=== PATIENT | female | born 1955 | race Two or more races ===

== ENCOUNTER 2017-03-11 09:37 | Emergency (ER) | payer SELFPAY ==
[2017-03-11] MEDS ORDERED: KETOROLAC 60 MG/2 ML INJ. IM (10:00)
== END 2017-03-11 10:33 | disposition home or self-care (01) ==
LOC: ER 09:37
DX: J06.9 Acute upper respiratory infection, unspecified (principal)
CPT/HCPCS: 99283

== ENCOUNTER → 2017-03-25 | Outpatient (CLI) | payer SELFPAY | END | disposition home or self-care (01) | LOC: KCIC 10:30 | DX: R06.2 Wheezing (principal); R06.02 Shortness of breath | CPT/HCPCS: 71046 ==

== ENCOUNTER → 2017-05-21 | Outpatient (CLI) | payer SELFPAY | END | disposition home or self-care (01) | LOC: KCIC MRI 13:01 | DX: H91.91 Unspecified hearing loss, right ear (principal) | CPT/HCPCS: 70551 ==

== ENCOUNTER → 2017-09-14 | Outpatient (CLI) | payer SELFPAY | END | disposition home or self-care (01) | LOC: KCIC MAMMO 11:04 | DX: Z12.31 Encounter for screening mammogram for malignant neoplasm of breast (principal) | CPT/HCPCS: 77067 ==

== ENCOUNTER → 2018-04-22 | Outpatient (CLI) | payer OTHER ==
[2017-03-11 10:01] VITALS: BP 160/70
[~2018-04-22] MED LIST: AMOX875T PO; BENZ100C PO; PRED20TA PO; TRAM50TA PO
--- NOTE | 2018-04-22 11:35 | KCIC ---
Exam performed: Right thumb 3 views. HISTORY: Right thumb pain. DATE OF SERVICE: 04/22/2018. COMPARISON: None available FINDINGS: Normal alignment is preserved. There is no acute fracture or dislocation. Early degenerative changes seen about the first carpometacarpal joint No soft tissue swelling or foreign body seen. IMPRESSION: Early degenerative changes involving the first carpometacarpal joint, otherwise unremarkable exam. Electronically signed by: Patricia Ibrahim MD (04/22/2018 11:30 AM) [facility]
== END | disposition home or self-care (01) ==
LOC: KCIC 10:47
PROVIDERS: ATTEND Plastic Surgery Surgery of the Hand
DX: M19.041 Primary osteoarthritis, right hand (principal)
CPT/HCPCS: 73140

== ENCOUNTER 2018-09-28 09:19 | Emergency (ER) | payer SELFPAY ==
[~2018-09-28] VITALS: Ht 167.6 cm; Wt 103.4 kg
[2018-09-28 10:31] LABS: BILIRUBIN,URINE NEGATIVE (NEG); CLARITY,URINE CLEAR; COLOR,URINE YELLOW; NITRITE,URINE NEGATIVE (NEG); PH,URINE 5.5; PROTEIN,URINE NEGATIVE (NEG-TRACE); UROBILINOGEN,URINE 0.2 mg/dL (0.2 mg/dL)
[2018-09-28 10:40] LABS: BACTERIA,URINE FEW /HPF (0-FEW); RBC,URINE 0 /HPF (0-2); SQUAMOUS EPITHELIAL CELL,UR FEW /LPF
[2018-09-28 10:51] LABS: CALCIUM 9.1 mg/dL (8.5-10.1); CREATININE 1.2 mg/dL (0.6-1.0); GFR 45.7; POTASSIUM 3.8 mmol/L (3.5-5.1)
[2018-09-28 10:59] LABS: ALBUMIN 3.5 g/dL (3.4-5.0); ALBUMIN/GLOBULIN RATIO 0.7 (1.0-1.7); TOTAL BILIRUBIN 0.5 mg/dL (0.2-1.0); TOTAL PROTEIN 8.3 g/dL (6.4-8.2)
[2018-09-28] MEDS ORDERED: IV NORMAL SALINE 1000ML BAG 1,000 ML IV ONE (11:00)
[2018-09-28 11:36] LABS: BASO # 0.1 x10^3/uL (0.0-0.2); BASO % 1 % (0-3); EOS # 0.1 x10^3/uL (0.0-0.7); EOS % 1 % (0-3); HEMATOCRIT 34.5 % (36.0-47.0); HEMOGLOBIN 11.5 g/dL (12.0-15.5); LYMPH # 1.3 x10^3/uL (1.0-4.8); LYMPH % 11 % (24-48); MEAN CORPUSCULAR HEMOGLOBIN 28 pg (25-35); MEAN CORPUSCULAR HGB CONC 33 g/dL (31-37); MEAN CORPUSCULAR VOLUME 84 fL (79-100); MONO # 0.6 x10^3/uL (0.0-1.1); MONO % 5 % (0-9); NEUT % 82 % (31-73); PLATELET COUNT 214 x10^3/uL (140-400); RED BLOOD COUNT 4.12 x10^6/uL (3.50-5.40); RED CELL DISTRIBUTION WIDTH 14.2 % (11.5-14.5); WHITE BLOOD COUNT 12.2 x10^3/uL (4.0-11.0)
[2018-09-28] MEDS ORDERED: CONTRAST GIVEN. MC PRN (11:45)
[2018-09-28] MEDS ORDERED: IOHEXOL 300 MG/ML 100ML VIAL. IV ONE (11:45)
--- NOTE | 2018-09-28 11:49 | NUR ---
Pt ambulated to the restroom.
--- NOTE | 2018-09-28 12:17 | EKG ---
[facility] [address] [place] [address] Test Date: 2018-09-28 Test Time: 10:19:26 Pat Name: EMILY CROWELL Department: Room: Gender: F [employer]: : 1955 Requested By: BARBER MONTERO Order Number: [id number] Reading MD: Measurements Intervals [place] Rate: 68 P: 35 [place]: 176 QRS: -26 QRSD: 94 T: 5 QT: 380 QTc: 409 Interpretive Statements SINUS RHYTHM LEFTWARD AXIS OTHERWISE NORMAL ECG RI6.01 No previous ECG available for comparison
--- NOTE | 2018-09-28 12:19 | RAD ---
Examination: CT of the abdomen pelvis with IV contrast HISTORY: History of abdominal pain COMPARISON: None available TECHNIQUE: Axial CT images of the abdomen pelvis were performed with IV contrast. Coronal and sagittal reformats are performed Exposure: One or more of the following individualized dose reduction techniques were utilized for this examination: 1. Automated exposure control 2. Adjustment of the mA and/or kV according to patient size 3. Use of iterative reconstruction technique FINDINGS: Minimal bibasilar lung atelectasis. No evidence of free air identified in the abdomen. The visualized liver, adrenals grossly appears unremarkable. Calcified granulomas identified in the spleen. The gallbladder is mildly distended. The stomach is mildly distended. The head of the pancreas evaluation is limited due to motion artifact. There is minimal change in density within the head of the pancreas which could be due to motion artifact however underlying pathology not excluded. The gallbladder is mildly distended. The small bowel is nondilated. Feces and gas noted in the colon. The appendix is normal. Few sigmoid colon diverticulosis identified. There is mild inflammatory fat stranding identified in the sigmoid colon region likely diverticulitis.. Urinary bladder is mildly distended. The bilateral kidneys enhance symmetrically. Mild degenerative changes lumbar spine. IMPRESSION: 1. Findings consistent with acute diverticulitis of the sigmoid colon. 2. Minimal differential density identified in the head of the pancreas probably artifactual, however underlying pathology not completely excluded. Recommend nonemergent MRI abdomen. Electronically signed by: Dwayne Anderson MD (09/28/2018 12:16 PM) [facility]
[2018-09-28 13:00] VITALS: BP 149/59
[2018-09-28] MEDS ORDERED: CIPR500T PO (13:07)
[2018-09-28] MEDS ORDERED: METR-34 PO (13:07)
--- NOTE | 2018-09-28 13:07 | PHYS DOC ---
Past Medical History Past Medical History: Anemia, Arthritis, Asthma, Diabetes-Type II, GERD, High Cholesterol, Hypertension, Renal Disease Additional Past Medical Histor: sleep apnea; peripheral neuropathy Past Surgical History: Lumbar Laminectomy, Tonsillectomy Additional Past Surgical Histo: bunionectomy; R carpal tunnel and trigger thumb Alcohol Use: None Drug Use: None Adult General Chief Complaint Chief Complaint: ABDOMINAL PAIN HPI HPI Patient is a 63 year old female who presents the ER for evaluation. Patient reports progressive nausea and right lower quadrant/suprapubic abdominal pain for the past 3-4 weeks. Decreased PO intake. + Weight loss. Denies any vomiting, diarrhea. Denies any fever. Denies any GI bleed symptoms. History of diabetes. Has not had any abdominal surgeries. Denies any previous episodes. Pain is constant, waxing/waning, 4-5/10, cramping. Review of Systems Review of Systems Constitutional: Denies fever or chills [] Eyes: Denies change in visual acuity, redness, or eye pain [] HENT: Denies nasal congestion or sore throat [] Respiratory: Denies cough or shortness of breath [] Cardiovascular: No chest pain, no palpitations, no LE edema GI: + abdominal pain, + nausea, no vomiting, no bloody stools or no diarrhea [] : Denies dysuria or hematuria [] Musculoskeletal: Denies back pain or joint pain [] Integument: Denies rash or skin lesions [] Neurologic: Denies headache, focal weakness or sensory changes [] Endocrine: Denies polyuria or polydipsia [] All other systems were reviewed and found to be within normal limits, except as documented in this note. Current Medications Current Medications Current Medications Medications (Trade) Dose Ordered Sig/Dung Start Time Stop Time Status Last Admin Dose Admin Ciprofloxacin (Cipro) 500 mg 1X ONCE 09/28/18 13:15 09/28/18 13:16 DC 09/28/18 13:14 500 MG Info (CONTRAST GIVEN -- Rx MONITORING) 1 each PRN DAILY PRN 09/28/18 11:45 09/28/18 13:43 DC Iohexol (Omnipaque 300 Mg/ml) 60 ml 1X ONCE 09/28/18 11:45 09/28/18 11:46 DC 09/28/18 12:01 60 ML Metronidazole (Flagyl) 500 mg 1X ONCE 09/28/18 13:15 09/28/18 13:16 DC 09/28/18 13:14 500 MG Sodium Chloride 1,000 ml @ 1,000 mls/hr 1X ONCE 09/28/18 11:00 09/28/18 11:59 DC 09/28/18 10:53 1,000 MLS/HR Allergies Allergies Allergies Coded Allergies Type Severity Reaction Last Updated Verified pineapple Allergy Severe swelling throat 09/28/18 Yes niacin Allergy Intermediate hives 09/28/18 Yes ezetimibe Allergy Mild HEADACHES 09/28/18 Yes simvastatin Allergy Mild HEADACHES 09/28/18 Yes Physical Exam Physical Exam Constitutional: Obese, [id number]. HENT: Normocephalic, atraumatic, Eyes: PERRLA, EOMI, Neck: No JVD, no stridor. [] Cardiovascular:Heart rate regular rhythm, no murmur [] Lungs & Thorax: Bilateral breath sounds clear to auscultation [] Abdomen: Bowel sounds normal, mild to moderate right periumbilical, no guarding, no rebound tenderness Skin: Warm, dry, no erythema, no rash. [] Back: No tenderness, no CVA tenderness. [] Extremities: No tenderness, no cyanosis, no clubbing, ROM intact, no edema. [] Neurologic: Alert and oriented X 3, no focal deficits Current Patient Data Vital Signs Vital Signs Date Time Temp Pulse Resp B/P (MAP) Pulse Ox O2 Delivery O2 Flow Rate FiO2 09/28/18 13:00 70 16 149/59 (89) 95 Room Air 09/28/18 09:55 99.3 99.3 Lab Values Laboratory Tests Test 09/28/18 10:15 09/28/18 10:25 Urine Collection Type Unknown Urine Color Yellow Urine Clarity Clear Urine pH 5.5 Urine Specific [place] 1.020 Urine Protein Negative mg/dL (NEG-TRACE) Urine Glucose (UA) 250 mg/dL (NEG) Urine Ketones (Stick) Negative mg/dL (NEG) Urine Blood Negative (NEG) Urine Nitrite Negative (NEG) Urine Bilirubin Negative (NEG) Urine Urobilinogen Dipstick 0.2 mg/dL (0.2 mg/dL) Urine Leukocyte Esterase Negative (NEG) Urine RBC 0 /HPF (0-2) Urine WBC 1-4 /HPF (0-4) Urine Squamous Epithelial Cells Few /LPF Urine Bacteria Few /HPF (0-FEW) White Blood Count 12.2 x10^3/uL (4.0-11.0) H Red Blood Count 4.12 x10^6/uL (3.50-5.40) Hemoglobin 11.5 g/dL (12.0-15.5) L Hematocrit 34.5 % (36.0-47.0) L Mean Corpuscular Volume 84 fL (79-100) Mean Corpuscular Hemoglobin 28 pg (25-35) Mean Corpuscular Hemoglobin Concent 33 g/dL (31-37) Red Cell Distribution Width 14.2 % (11.5-14.5) Platelet Count 214 x10^3/uL (140-400) Neutrophils (%) (Auto) 82 % (31-73) H Lymphocytes (%) (Auto) 11 % (24-48) L Monocytes (%) (Auto) 5 % (0-9) Eosinophils (%) (Auto) 1 % (0-3) Basophils (%) (Auto) 1 % (0-3) Neutrophils # (Auto) 10.0 x10^3/uL (1.8-7.7) H Lymphocytes # (Auto) 1.3 x10^3/uL (1.0-4.8) Monocytes # (Auto) 0.6 x10^3/uL (0.0-1.1) Eosinophils # (Auto) 0.1 x10^3/uL (0.0-0.7) Basophils # (Auto) 0.1 x10^3/uL (0.0-0.2) Sodium Level 136 mmol/L (136-145) Potassium Level 3.8 mmol/L (3.5-5.1) Chloride Level 99 mmol/L (98-107) Carbon Dioxide Level 31 mmol/L (21-32) Anion Gap 6 (6-14) Blood Urea Nitrogen 20 mg/dL (7-20) Creatinine 1.2 mg/dL (0.6-1.0) H Estimated GFR (Cockcroft-Gault) 45.7 BUN/Creatinine Ratio 17 (6-20) Glucose Level 219 mg/dL (70-99) H Calcium Level 9.1 mg/dL (8.5-10.1) Total Bilirubin 0.5 mg/dL (0.2-1.0) Aspartate Amino Transferase (AST) 19 U/L (15-37) Alanine Aminotransferase (ALT) 21 U/L (14-59) Alkaline Phosphatase 70 U/L (46-116) Total Protein 8.3 g/dL (6.4-8.2) H Albumin 3.5 g/dL (3.4-5.0) Albumin/Globulin Ratio 0.7 (1.0-1.7) L Lipase 138 U/L (73-393) Laboratory Tests 09/28/18 10:25 Laboratory Tests 09/28/18 10:25 EKG EKG [] Radiology/Procedures Radiology/Procedures CT ABD/Pelvis IMPRESSION: 1. Findings consistent with acute diverticulitis of the sigmoid colon. 2. Minimal differential density identified in the head of the pancreas probably artifactual, however underlying pathology not completely excluded. Recommend nonemergent MRI abdomen. Electronically signed by: Dwayne Anderson MD (09/28/2018 12:16 PM) [facility] [] Course & Med Decision Making Course & Med Decision Making Pertinent Labs and Imaging studies reviewed. (See chart for details) []Pt declined nausea/pain medication while in the ED. Labs/CT as above consistent with diverticulitis.Pt appropriate for outpt management. First dose of ABX given in ED. Discussed Rx. ER return precautions given. Pt verbalized understanding. All questions answered. Dragon Disclaimer Dragon Disclaimer This electronic medical record was generated, in whole or in part, using a voice recognition dictation system. Departure Departure Impression: Primary Impression: Diverticulitis Additional Impression: Abdominal pain Disposition: 01 HOME, SELF-CARE Condition: STABLE Referrals: JEMMA LICEA MD (PCP) Patient Instructions: Diverticulitis Additional Instructions: Thank you for coming to [facility]. Please read the attached handouts. Please follow-up with your primary care physician. Return to the ER if your symptoms worsen or you have any other concerns. Take the entire course of antibiotics. Scripts Metronidazole (METRONIDAZOLE) 500 Mg Tablet 1 TAB PO TID for 7 Days, #21 TAB Prov: KEITHLY,BARBER T DO 09/28/18 Ciprofloxacin Hcl (CIPROFLOXACIN HCL) 500 Mg Tablet 1 TAB PO BID, #14 TAB Prov: KEITHLY,BARBER T DO 09/28/18 Problem Qualifiers KEITHLY,BARBER T DO Sep 28, 2018 13:07
[2018-09-28] MEDS ORDERED: CIPROFLOXACIN HCL 250 MG TABLET. PO ONE (13:15)
[2018-09-28] MEDS ORDERED: metroNIDAZOLE 500 MG TABLET PO ONE (13:15)
== END 2018-09-28 13:18 | disposition home or self-care (01) ==
LOC: ER 09:19
DX: M19.90 Unspecified osteoarthritis, unspecified site (principal); K57.32 Diverticulitis of large intestine without perforation or abscess without bleeding; R11.0 Nausea; E66.9 Obesity, unspecified; Z68.36 Body mass index [BMI] 36.0-36.9, adult; J45.909 Unspecified asthma, uncomplicated; K21.9 Gastro-esophageal reflux disease without esophagitis; E78.00 Pure hypercholesterolemia, unspecified; I10 Essential (primary) hypertension; E11.40 Type 2 diabetes mellitus with diabetic neuropathy, unspecified; Z90.89 Acquired absence of other organs; Z88.8 Allergy status to other drugs, medicaments and biological substances; Z91.018 Allergy to other foods
CPT/HCPCS: 36415; 74177; 80053; 81001; 83690; 85025; 87040; 93005; 99285; J7030; Q9967

== ENCOUNTER → 2018-10-12 | Outpatient (CLI) | payer OTHER ==
[2018-09-28 13:00] VITALS: BP 149/59
[~2018-10-12] MED LIST changes: +CIPR500T PO; +CONTRAST GIVEN. MC PRN; +IOHEXOL 240 MG/ML 50ML VIAL. PO ONE; +IOHEXOL 300 MG/ML 100ML VIAL. IV ONE; +METR-34 PO
--- NOTE | 2018-10-12 11:12 | KCIC ---
Examination: CT of the abdomen pelvis with IV and oral contrast HISTORY: History follow-up diverticulitis COMPARISON: 09/28/2018 TECHNIQUE: Axial CT images of the abdomen pelvis were performed with oral and IV contrast. Coronal and sagittal reformats are performed. Exposure: One or more of the following individualized dose reduction techniques were utilized for this examination: 1. Automated exposure control 2. Adjustment of the mA and/or kV according to patient size 3. Use of iterative reconstruction technique FINDINGS: Minimal bibasilar lung atelectasis. No evidence of free air identified in the abdomen. Mild decreased attenuation noted in the liver likely hepatic steatosis. Calcified granulomas identified in the spleen. The stomach is mildly distended. The visualized pancreas grossly appears unremarkable. The gallbladder is mildly distended. The small bowel is nondilated. The appendix is normal. Feces and gas noted in the colon. Multiple sigmoid colon diverticulosis identified. There is interval mild decrease in diameter fat stranding about the sigmoid colon likely in both diverticulitis. Urinary bladder is mildly distended. Small hypodensity identified in the left ovary probably a collapsed follicle or cyst. The bilateral kidneys enhance symmetrically. Small cystic structure identified in the right kidney measuring 1.6 cm likely a cyst. Mild degenerative changes lumbar spine. IMPRESSION: 1. Improved sigmoid colon diverticulitis. Electronically signed by: Dwayne Anderson MD (10/12/2018 11:09 AM) [id number]
== END | disposition home or self-care (01) ==
LOC: KCIC CT 09:03
PROVIDERS: ATTEND Family Medicine
DX: K57.30 Diverticulosis of large intestine without perforation or abscess without bleeding (principal); K31.89 Other diseases of stomach and duodenum; K82.8 Other specified diseases of gallbladder; N32.89 Other specified disorders of bladder; J98.11 Atelectasis; J84.10 Pulmonary fibrosis, unspecified; M47.816 Spondylosis without myelopathy or radiculopathy, lumbar region
CPT/HCPCS: 74177; Q9966; Q9967

== ENCOUNTER → 2018-11-16 | Outpatient (CLI) | payer OTHER ==
[~2018-11-16] MED LIST changes: -CONTRAST GIVEN. MC PRN; -IOHEXOL 240 MG/ML 50ML VIAL. PO ONE; -IOHEXOL 300 MG/ML 100ML VIAL. IV ONE
--- NOTE | 2018-11-16 16:51 | RAD ---
MRCP WO CONTRAST: 11/16/2018 8:15 AM INDICATION: 63 years old Female. Abdominal pain for 2 months. History of pancreatic cyst.. COMPARISON: CT abdomen/pelvis 10/12/2018. TECHNIQUE: Multiplanar multisequence MR imaging of the abdomen was performed without the intravenous administration of gadolinium. MRCP protocol was utilized. Maximum intensity projection images of the biliary tree were obtained. FINDINGS: LUNG BASES: Unremarkable. ABDOMEN: LIVER: Normal morphology. No significant difference of hepatic signal intensity between in and out of phase images. There is no focal hepatic parenchymal abnormality. BILE DUCTS: CBD 5 mm. There is no intra or extrahepatic biliary ductal dilatation. There is no filling defect, stricture, obstructing lesion or biliary wall thickening identified. GALLBLADDER: Unremarkable. PANCREAS: Normal caliber pancreatic duct. 5 mm cyst is identified within the pancreas without definite indication of the main pancreatic duct. SPLEEN: Within normal limits. ADRENAL GLANDS: Unremarkable. KIDNEYS: Superior pole left renal cyst measures 13 mm. No hydronephrosis. BOWEL: Normal caliber. PERITONEUM: No ascites or free air. No fluid collection. VASCULATURE: No abdominal aortic aneurysm. Major abdominal veins are patent. RETROPERITONEUM: Within normal limits. LYMPH NODES: Within normal limits. ABDOMINAL WALL: Unremarkable. BONES: No suspicious osseous abnormality. Minimal levoconvex curvature of the lumbar spine. IMPRESSION: No evidence of biliary dilatation, stricture, filling defect, wall thickening or obstructing mass lesion. 5 mm cyst in the body of the pancreas without definite communication with the main pancreatic duct. Consideration may be given for a simple epithelial cyst versus side branch intraductal papillary mucinous neoplasm. Recommend MRCP in 2 years. Simple renal cyst in the superior pole the right kidney measuring 13 mm. Electronically signed by: Lisseth Tanner MD (11/16/2018 4:48 PM) [facility]
== END | disposition home or self-care (01) ==
LOC: MRI 07:32
PROVIDERS: ATTEND Internal Medicine Gastroenterology
DX: K86.2 Cyst of pancreas (principal); N28.1 Cyst of kidney, acquired
CPT/HCPCS: 74181

== ENCOUNTER 2018-12-20 09:44 | Emergency (ER) | payer OTHER ==
[~2018-12-20] VITALS: Ht 167.6 cm; Wt 98.9 kg
[2018-12-20 10:37] LABS: BILIRUBIN,URINE NEGATIVE (NEG); CLARITY,URINE CLEAR; COLOR,URINE YELLOW; NITRITE,URINE NEGATIVE (NEG); PROTEIN,URINE NEGATIVE (NEG-TRACE); UROBILINOGEN,URINE 0.2 mg/dL (0.2 mg/dL)
[2018-12-20 10:43] LABS: SQUAMOUS EPITHELIAL CELL,UR FEW /LPF
[2018-12-20 10:44] LABS: BASO # 0.1 x10^3/uL (0.0-0.2); BASO % 1 % (0-3); EOS # 0.2 x10^3/uL (0.0-0.7); EOS % 1 % (0-3); HEMATOCRIT 34.2 % (36.0-47.0); HEMOGLOBIN 11.5 g/dL (12.0-15.5); LYMPH # 1.4 x10^3/uL (1.0-4.8); LYMPH % 12 % (24-48); MEAN CORPUSCULAR HEMOGLOBIN 28 pg (25-35); MEAN CORPUSCULAR HGB CONC 34 g/dL (31-37); MEAN CORPUSCULAR VOLUME 84 fL (79-100); MONO # 0.5 x10^3/uL (0.0-1.1); MONO % 4 % (0-9); NEUT # 9.6 x10^3/uL (1.8-7.7); NEUT % 82 % (31-73); PLATELET COUNT 213 x10^3/uL (140-400); RED BLOOD COUNT 4.07 x10^6/uL (3.50-5.40); RED CELL DISTRIBUTION WIDTH 14.5 % (11.5-14.5); WHITE BLOOD COUNT 11.8 x10^3/uL (4.0-11.0)
[2018-12-20 10:44] LABS: BACTERIA,URINE FEW /HPF (0-FEW)
[2018-12-20 11:00] LABS: CALCIUM 9.2 mg/dL (8.5-10.1); CREATININE 1.1 mg/dL (0.6-1.0); GFR 50.5; POTASSIUM 4.2 mmol/L (3.5-5.1)
[2018-12-20 11:06] LABS: ALBUMIN 3.9 g/dL (3.4-5.0); ALBUMIN/GLOBULIN RATIO 1.1 (1.0-1.7); TOTAL BILIRUBIN 0.6 mg/dL (0.2-1.0); TOTAL PROTEIN 7.6 g/dL (6.4-8.2)
[2018-12-20] MEDS ORDERED: KETOROLAC 30 MG/ML VIAL. IV ONE (11:15)
--- NOTE | 2018-12-20 11:19 | RAD ---
PELVIS ULTRASOUND History: Abnormal vaginal bleeding. Postmenopausal. Comparison: None. Technique: Grayscale and color Doppler imaging of the pelvis was performed using transabdominal technique. Findings: The uterus measures 7.1 x 7.2 x 5.2 cm in length. Thickened endometrium measures up to 2.0 cm. Hyperechoic structure within the endometrial canal measures 2.9 x 2.2 x 2.3 cm with increased vascularity. Small nonspecific endometrial fluid noted. Right ovary measures 2.2 x 1.8 x 1.5 cm and is unremarkable. Left ovary measures 3.1 x 1.5 x 2.2 cm and is unremarkable. No adnexal masses are seen. IMPRESSION: 1. Thickened endometrium with hyperechoic lesion with increased vascular flow and adjacent fluid, may represent endometrial polyp although endometrial carcinoma is not excluded. Recommend further clinical evaluation and endometrial biopsy. Electronically signed by: Maninder Anderson DO (12/20/2018 11:16 AM) [id number]
--- NOTE | 2018-12-20 11:34 | PHYS DOC ---
Past Medical History Past Medical History: Anemia, Arthritis, Asthma, Diabetes-Type II, GERD, High Cholesterol, Hypertension, Renal Disease Additional Past Medical Histor: sleep apnea; peripheral neuropathy Past Surgical History: Lumbar Laminectomy, Tonsillectomy Additional Past Surgical Histo: bunionectomy; R carpal tunnel and trigger thumb Alcohol Use: None Drug Use: None Adult General Chief Complaint Chief Complaint: ABDOMINAL PAIN [facility] HPI Patient is a 63 year old post menopausal female who presents with complaining of abdominal pain and abnormal vaginal bleeding. Patient had diagnosis of diverticulitis in September 28 with constant generalized abdominal pain and was seen in this emergency room. Patient complaining of constant suprapubic pain for the same time and intermittent episodes of vaginal bleeding since end of September with dark blood that happened off and on. Patient states the pain as a sharp pain and radiated to her umbilical area and rated her pain 8/10. Patient didn't take any pain medication and did not follow up with her primary care physician or OB /[employer]AR [employer]TIF[employer]. Patient states she lost about 20 pounds bleeding and complaining of decrease of appetite and generalized weakness. Reading, vomiting, chest pain, shortness of breath. Patient complaining of urinary frequency. Review of Systems Review of Systems Constitutional: Denies fever or chills [] Eyes: Denies change in visual acuity, redness, or eye pain [] HENT: Denies nasal congestion or sore throat [] Respiratory: Denies cough or shortness of breath [] Cardiovascular: No additional information not addressed in HPI [] GI: Reports abdominal pain, denies nausea, vomiting, bloody stools or diarrhea [] : Denies dysuria or hematuria [] Musculoskeletal: Denies back pain or joint pain [] Integument: Denies rash or skin lesions [] Neurologic: Denies headache, focal weakness or sensory changes [] Endocrine: Denies polyuria or polydipsia [] All other systems were reviewed and found to be within normal limits, except as documented in this note. Current Medications Current Medications Current Medications Medications (Trade) Dose Ordered Sig/Dung Start Time Stop Time Status Last Admin Dose Admin Ketorolac Tromethamine (Toradol 30mg Vial) 30 mg 1X ONCE 12/20/18 11:15 12/20/18 11:16 DC 12/20/18 11:11 30 MG Allergies Allergies Allergies Coded Allergies Type Severity Reaction Last Updated Verified pineapple Allergy Severe swelling throat 09/28/18 Yes niacin Allergy Intermediate hives 09/28/18 Yes ezetimibe Allergy Mild HEADACHES 09/28/18 Yes simvastatin Allergy Mild HEADACHES 09/28/18 Yes Physical Exam Physical Exam Constitutional: Well developed, well nourished, mild distress, non-toxic appearance, no pallor. [] HENT: Normocephalic, atraumatic. Eyes: PERRLA, EOMI, conjunctiva normal, no discharge. [] Neck: Normal range of motion, no tenderness, supple, no stridor. [] Cardiovascular:Heart rate regular rhythm, no murmur [] Lungs & Thorax: Bilateral breath sounds clear to auscultation [] Abdomen: Bowel sounds normal, soft, no tenderness, no masses, no pulsatile masses. [] Skin: Warm, dry, no erythema, no rash. [] Back: No tenderness, no CVA tenderness. [] Extremities: No tenderness, no cyanosis, no clubbing, ROM intact, no edema. [] Neurologic: Alert and oriented X 3, no focal deficits noted. [] Psychologic: Affect normal, judgement normal, mood normal. [] Current Patient Data Vital Signs Vital Signs Date Time Temp Pulse Resp B/P (MAP) Pulse Ox O2 Delivery O2 Flow Rate FiO2 12/20/18 11:00 68 22 161/68 (99) 96 Room Air 12/20/18 09:45 98.7 98.7 Lab Values Laboratory Tests Test 12/20/18 09:55 12/20/18 10:35 Urine Collection Type Void Urine Color Yellow Urine Clarity Clear Urine pH 5.0 Urine Specific [place] 1.020 Urine Protein Negative mg/dL (NEG-TRACE) Urine Glucose (UA) Negative mg/dL (NEG) Urine Ketones (Stick) Negative mg/dL (NEG) Urine Blood Negative (NEG) Urine Nitrite Negative (NEG) Urine Bilirubin Negative (NEG) Urine Urobilinogen Dipstick 0.2 mg/dL (0.2 mg/dL) Urine Leukocyte Esterase Negative (NEG) Urine RBC 1-2 /HPF (0-2) Urine WBC 5-10 /HPF (0-4) Urine Squamous Epithelial Cells Few /LPF Urine Bacteria Few /HPF (0-FEW) Urine Mucus Marked /LPF White Blood Count 11.8 x10^3/uL (4.0-11.0) H Red Blood Count 4.07 x10^6/uL (3.50-5.40) Hemoglobin 11.5 g/dL (12.0-15.5) L Hematocrit 34.2 % (36.0-47.0) L Mean Corpuscular Volume 84 fL (79-100) Mean Corpuscular Hemoglobin 28 pg (25-35) Mean Corpuscular Hemoglobin Concent 34 g/dL (31-37) Red Cell Distribution Width 14.5 % (11.5-14.5) Platelet Count 213 x10^3/uL (140-400) Neutrophils (%) (Auto) 82 % (31-73) H Lymphocytes (%) (Auto) 12 % (24-48) L Monocytes (%) (Auto) 4 % (0-9) Eosinophils (%) (Auto) 1 % (0-3) Basophils (%) (Auto) 1 % (0-3) Neutrophils # (Auto) 9.6 x10^3/uL (1.8-7.7) H Lymphocytes # (Auto) 1.4 x10^3/uL (1.0-4.8) Monocytes # (Auto) 0.5 x10^3/uL (0.0-1.1) Eosinophils # (Auto) 0.2 x10^3/uL (0.0-0.7) Basophils # (Auto) 0.1 x10^3/uL (0.0-0.2) Sodium Level 143 mmol/L (136-145) Potassium Level 4.2 mmol/L (3.5-5.1) Chloride Level 105 mmol/L (98-107) Carbon Dioxide Level 28 mmol/L (21-32) Anion Gap 10 (6-14) Blood Urea Nitrogen 23 mg/dL (7-20) H Creatinine 1.1 mg/dL (0.6-1.0) H Estimated GFR (Cockcroft-Gault) 50.5 BUN/Creatinine Ratio 21 (6-20) H Glucose Level 144 mg/dL (70-99) H Calcium Level 9.2 mg/dL (8.5-10.1) Total Bilirubin 0.6 mg/dL (0.2-1.0) Aspartate Amino Transferase (AST) 14 U/L (15-37) L Alanine Aminotransferase (ALT) 16 U/L (14-59) Alkaline Phosphatase 65 U/L (46-116) Total Protein 7.6 g/dL (6.4-8.2) Albumin 3.9 g/dL (3.4-5.0) Albumin/Globulin Ratio 1.1 (1.0-1.7) Lipase 111 U/L (73-393) Laboratory Tests 12/20/18 10:35 Laboratory Tests 12/20/18 10:35 EKG EKG [] Radiology/Procedures Radiology/Procedures [][facility] [address] [place] [address] IMAGING REPORT Signed PATIENT: EMILY CROWELL ACCOUNT: [id number] : 1955 LOCATION: ER AGE: 63 SEX: F EXAM STATUS: REG ER ORD. PHYSICIAN: KENA STALLINGS MD REASON: abnormal vaginal bleeding after menopause PROCEDURE: PELVIS ULTRASOUND PELVIS ULTRASOUND History: Abnormal vaginal bleeding. Postmenopausal. Comparison: None. Technique: Grayscale and color Doppler imaging of the pelvis was performed using transabdominal technique. Findings: The uterus measures 7.1 x 7.2 x 5.2 cm in length. Thickened endometrium measures up to 2.0 cm. Hyperechoic structure within the endometrial canal measures 2.9 x 2.2 x 2.3 cm with increased vascularity. Small nonspecific endometrial fluid noted. Right ovary measures 2.2 x 1.8 x 1.5 cm and is unremarkable. Left ovary measures 3.1 x 1.5 x 2.2 cm and is unremarkable. No adnexal masses are seen. IMPRESSION: 1. Thickened endometrium with hyperechoic lesion with increased vascular flow and adjacent fluid, may represent endometrial polyp although endometrial carcinoma is not excluded. Recommend further clinical evaluation and endometrial biopsy. Electronically signed by: Maninder Anderson DO (12/20/2018 11:16 AM) [facility] DICTATED and SIGNED BY: MANINDER ANDERSON DO DATE: 12/20/18 1116 Course & Med Decision Making Course & Med Decision Making Pertinent Labs and Imaging studies reviewed. (See chart for details) Evaluation of patient in ER showed 63-year-old female patient with complaining of postmenopausal vaginal bleeding and abdominal pain for more than 2 months. Patient had unremarkable physical exam and labs except for a stable anemia with hemoglobin of 11.5. The Ultrasound showed thickening of endometrium with possible polyp or malignancy. On-call GAMING TABLE OPERATOR Dr Seth was consulted at 1150 and recommended follow-up as outpatient with his office for possible endometrial biopsy. I've spoken with the patient and/or caregivers. I've explained the patient's condition, diagnosis and treatment plan based on information available to me at this time. I've answered the patient's and/or caregivers questions and addressed any concerns. The patient and/or caregivers have a good understanding the patient's diagnosis, condition and treatment plan as can be expected at this point. Vital signs have been stabilized. The patient's condition is stable for discharge from the emergency department. The patient will pursue further outpatient evaluation with her primary care provider or other designated consulting physician as outlined in the discharge instructions. Patient and/or caregivers are agreeable to this plan of care and follow-up instructions have been explained in detail. The patient and/or caregivers have received these instructions in written format and expressed understanding of these discharge instructions. The patient and her caregivers are aware that if any significant change in condition or worsening of symptoms should prompt him to immediately return to this of the closest emergency department. If an emergent department is not readily available I would encourage him to call 911. Harris Disclaimer Dragon Disclaimer This electronic medical record was generated, in whole or in part, using a voice recognition dictation system. Departure Departure Impression: Primary Impression: Postmenopausal vaginal bleeding Additional Impressions: Chronic abdominal pain Anemia Urinary tract infection Disposition: HOME, SELF-CARE (at 1159) Condition: IMPROVED Referrals: JEMMA LICEA MD (PCP) MADAY SETH MD Patient Instructions: Abdominal Pain, Abnormal Uterine Bleeding, Anemia, FAQs, Postmenopausal Bleeding, Urinary Tract Infection Additional Instructions: Follow up with on-call GAMING TABLE OPERATOR in 2 or 3 days Follow-up with your primary care physician in 3-5 days Return to ER if not getting better Take [id number] iron pills 3 times a day Scripts Ciprofloxacin Hcl (CIPRO) 250 Mg Tablet 1 TAB PO BID for infection, #14 TAB Prov: KENA STALLINGS MD 12/20/18 Tramadol Hcl (ULTRAM) 50 Mg Tablet 50 MG PO Q6HRS PRN for PAIN, #14 TAB 0 Refills Prov: KENA STALLINGS MD 12/20/18 Problem Qualifiers Additional Impressions: Anemia Anemia type: unspecified type Qualified Codes: D64.9 - Anemia, unspecified Urinary tract infection Urinary tract infection type: site unspecified Hematuria presence: without hematuria Qualified Codes: N39.0 - Urinary tract infection, site not specified KENA STALLINGS MD Dec 20, 2018 11:34
[2018-12-20] MEDS ORDERED: TRAM-48 PO (12:01)
[2018-12-20] MEDS ORDERED: CIPR250T30 PO (12:12)
[2018-12-20] MEDS ORDERED: fentaNYL PF VIAL 100 MCG/2 ML VIAL IVP ONE (12:30)
[2018-12-20 12:45] VITALS: BP 151/67
[2018-12-24] MEDS ORDERED: POTA20TA82 PO (14:42)
[2018-12-24] MEDS ORDERED: LACT1CAP29 PO (14:42)
[2018-12-24] MEDS ORDERED: OLME1TAB21 PO (14:42)
[2018-12-24] MEDS ORDERED: FURO20TA3 PO (14:42)
[2018-12-24] MEDS ORDERED: INSU100V6 SQ (14:42)
[2018-12-24] MEDS ORDERED: EZET10TA20 PO (14:42)
[2018-12-24] MEDS ORDERED: SITA100T PO (14:42)
[2018-12-24] MEDS ORDERED: HYDR-2867 PO (14:42)
[2018-12-24] MEDS ORDERED: INSU100I13 SQ (14:42)
[2018-12-24] MEDS ORDERED: VENTOLIN HFA18 GM INH (14:42)
[2018-12-24] MEDS ORDERED: CARV25TA2 PO (14:42)
[2018-12-24] MEDS ORDERED: CRESTOR20 MG PO (14:42)
[2018-12-24] MEDS ORDERED: BUDE90AE IH (14:42)
[2018-12-24] MEDS ORDERED: ASPI-630 PO (14:42)
[2018-12-24] MEDS ORDERED: CHOL200059 PO (14:42)
== END 2018-12-20 13:05 | disposition home or self-care (01) ==
LOC: ER 09:44
DX: N95.0 Postmenopausal bleeding (principal); G89.29 Other chronic pain; R10.84 Generalized abdominal pain; R53.1 Weakness; D64.9 Anemia, unspecified; N39.0 Urinary tract infection, site not specified; M19.90 Unspecified osteoarthritis, unspecified site; J45.909 Unspecified asthma, uncomplicated; E11.9 Type 2 diabetes mellitus without complications; K21.9 Gastro-esophageal reflux disease without esophagitis; E78.00 Pure hypercholesterolemia, unspecified; I10 Essential (primary) hypertension; E11.40 Type 2 diabetes mellitus with diabetic neuropathy, unspecified; Z90.89 Acquired absence of other organs; Z88.8 Allergy status to other drugs, medicaments and biological substances; Z91.018 Allergy to other foods
CPT/HCPCS: 36415; 76856; 80053; 81001; 83690; 85025; 87086; 96374; 99285; J1885

== ENCOUNTER 2018-12-27 11:13 | Day surgery (SDC) | payer OTHER ==
[~2018-12-27 11:13] MED LIST changes: +ASPI-630 PO; +BUDE90AE IH; +CARV25TA2 PO; +CHOL200059 PO; +CIPR250T30 PO; +CRESTOR20 MG PO; +EZET10TA20 PO; +FURO20TA3 PO; +HYDR-2867 PO; +HYDROmorphone 2 MG/ML VIAL IV PRN; +INSU100I13 SQ; +INSU100V6 SQ; +IV RINGERS,LACTATED 1000ML 1,000 ML IV SCH; +LACT1CAP29 PO; +LIDOCAINE 1% PF 2 ML VIAL. ID PRN; +MORPHINE SULFATE 2 MG/ML VIAL. IV PRN; +OLME1TAB21 PO; +ONDANSETRON PF 4 MG/2 ML VIAL. IV PRN; +POTA20TA82 PO; +PROCHLORPERAZINE 10 MG/2 ML VIAL. IV PRN; +SITA100T PO; +TRAM-48 PO; +VENTOLIN HFA18 GM INH; +fentaNYL PF VIAL 100 MCG/2 ML VIAL IV PRN
[2018-12-27] MEDS ORDERED: INSULIN LISPRO 100 UNIT/ML 3ML VIAL for OP,RR ONLY. SQ PRN (11:15)
[2018-12-27] MEDS ORDERED: FAMOTIDINE 20 MG/2 ML VIAL ONE (11:56)
[2018-12-27] MEDS ORDERED: LIDOCAINE 2% PF 5 ML VIAL. ONE (11:56)
[2018-12-27] MEDS ORDERED: ONDANSETRON PF 4 MG/2 ML VIAL. ONE (11:56)
[2018-12-27] MEDS ORDERED: PROPOFOL 20 ML IV ONE (11:56)
[2018-12-27] MEDS ORDERED: fentaNYL PF VIAL 100 MCG/2 ML VIAL ONE ×2 (11:57→14:21)
[2018-12-27] MEDS ORDERED: GLYCOPYRROLATE 1 MG/5 ML VIAL. ONE (13:29)
[2018-12-27] MEDS ORDERED: DEXAMETHASONE SOD PHOS 4 MG/ML VIAL ONE (13:37)
[2018-12-27] MEDS ORDERED: SEVOFLURANE 31 TO 60 MINUTES. IH ONE (14:03)
[2018-12-27] MEDS ORDERED: NAPR-514 PO (14:46)
[2018-12-27] MEDS ORDERED: HYDR-3164 PO (14:46)
[2018-12-27] MEDS ORDERED: HYDROcodone/APAP 5/325MG 1 TAB TABLET ONE (14:51)
--- NOTE | 2018-12-27 14:52 | PDOC ---
BRIEF OPERATIVE NOTE Pre-Op Diagnosis PMB Post-Op Diagnosis Same polyp Procedure Performed Hystrxcopic D and C with polypectomy Surgeon Rolo Anesthesia Type: General Blood Loss 5cc Specimens Obtained EMB MADAY STEVENSON MD Dec 27, 2018 14:52
[2018-12-27] MEDS ORDERED: HYDROcodone/APAP 5/325MG 1 TAB TABLET PO ONE (15:00)
[2018-12-27 15:10] VITALS: BP 173/65
--- NOTE | 2018-12-30 19:07 | PATHOLOGY ---
[facility] Accession Number: [id number] . 01 Material submitted: . endometrium - ENDOMETRIAL CURETTINGS . 01 Clinical history: . PMB . 02 Diagnosis: Endometrium, curettage: - Well-differentiated endometrial adenocarcinoma, FIGO architectural grade I, nuclear grade I. . (Please see comment) . (SKM:funmi; 12/30/2018) MBR 12/30/2018 1824 Local . 02 Comment: The findings in this case were discussed with Dr. Adrian Seth on 12/30/18. . This case has also been reviewed by Dr. Savana Syed who agrees with the diagnosis. . (SKM:funmi; 12/30/2018) . 02 Electronically signed: . Harjinder Hughes MD, Pathologist NPI- [id number] . 01 Gross description: . Received in formalin labeled "Ball, Yesy, endometrial curettings" is soft, mucoid, and hemorrhagic otoole-brown tissue measuring 2.6 x 2.3 x 0.4 cm which is entirely submitted in A1. (SDY; 12/28/2018) SYU/SYU 12/28/2018 1702 Local . 02 Pathologist provided ICD-10: C54.1 . 02 CPT . 206000 Specimen Comment: A courtesy copy of this report has been sent to Specimen Comment: [phone], . Specimen Comment: Report sent to / DR LICEA Performed at: 01 [facility] [address], [place] [id number] MD Gareth Bautista MD Phone: [phone] Performed at: [address] [id number] MD Chris Garcia MD Phone: [phone]
--- NOTE | 2019-01-04 20:31 | OP ---
DATE OF SURGERY: 12/27/2018 PREOPERATIVE DIAGNOSIS: Postmenopausal bleeding. POSTOPERATIVE DIAGNOSIS: Postmenopausal bleeding. PROCEDURE: Hysteroscopic D and C converted to EMB. SURGEON: Adrian Seth MD SALESPERSON HOUSEHOLD APPLIANCES: None. ESTIMATED BLOOD LOSS: 5 mL. SPECIMENS: Endometrial biopsy. DESCRIPTION OF PROCEDURE: After risks, benefits, indications, alternatives, expectations were discussed in detail with the patient, the patient was brought to OR theater, placed in the dorsal lithotomy position in Chris stirrups. After adequate general anesthesia, the patient prepped and draped in usual sterile manner. The patient had a very atrophic vagina and cervix that was attenuated with the vaginal wall with very little mobility. Downey speculum had been placed and it was attempted to grab the cervix with a single tooth tenaculum, but secondary to attenuation with the vaginal wall, this was difficult. It was felt at this time, endometrial biopsy would be warranted with endometrial biopsy curette. This was placed. The uterus sounded approximately 8 cm. Specimen was obtained and the procedure was terminated. Vaginal vault was wiped free of any tissue or blood. Downey speculum was removed. Cervix was hemostatic. Procedure was terminated. Sponge, needle, and instrument counts were correct x 2 per nursing staff. ADRIAN SETH MD DR: JUAN/colby JOB#: [id number] / [id number]
== END 2018-12-27 16:00 | disposition home or self-care (01) ==
LOC: SURG 11:13
PROVIDERS: ATTEND Specialist
DX: N84.0 Polyp of corpus uteri (principal); E11.22 Type 2 diabetes mellitus with diabetic chronic kidney disease; I12.9 Hypertensive chronic kidney disease with stage 1 through stage 4 chronic kidney disease, or unspecified chronic kidney disease; N18.3 Chronic kidney disease, stage 3 (moderate); E11.40 Type 2 diabetes mellitus with diabetic neuropathy, unspecified; E78.00 Pure hypercholesterolemia, unspecified; J45.909 Unspecified asthma, uncomplicated; G47.30 Sleep apnea, unspecified; K21.9 Gastro-esophageal reflux disease without esophagitis; K57.30 Diverticulosis of large intestine without perforation or abscess without bleeding; D64.9 Anemia, unspecified; Z87.440 Personal history of urinary (tract) infections; Z87.39 Personal history of other diseases of the musculoskeletal system and connective tissue; Z98.890 Other specified postprocedural states; Z79.84 Long term (current) use of oral hypoglycemic drugs
CPT/HCPCS: 58558; 82962; 88305; A7015; J1100; J2001; J2405; J2704; J3010; J3490

== ENCOUNTER 2019-11-21 13:22 | Emergency (ER) | payer MEDICAID, OTHER ==
[~2019-11-21] VITALS: Ht 167.6 cm; Wt 101.8 kg
[~2019-11-21 13:22] MED LIST changes: +HYDR-3164 PO; -HYDROmorphone 2 MG/ML VIAL IV PRN; -IV RINGERS,LACTATED 1000ML 1,000 ML IV SCH; -LIDOCAINE 1% PF 2 ML VIAL. ID PRN; -MORPHINE SULFATE 2 MG/ML VIAL. IV PRN; +NAPR-514 PO; -ONDANSETRON PF 4 MG/2 ML VIAL. IV PRN; +POTA20TA4 PO; -POTA20TA82 PO; -PROCHLORPERAZINE 10 MG/2 ML VIAL. IV PRN; -fentaNYL PF VIAL 100 MCG/2 ML VIAL IV PRN
[2019-11-21 14:47] LABS: BASO % 1 % (0-3); EOS # 0.2 x10^3/uL (0.0-0.7); EOS % 4 % (0-3); HEMATOCRIT 31.4 % (36.0-47.0); HEMOGLOBIN 10.7 g/dL (12.0-15.5); LYMPH # 0.6 x10^3/uL (1.0-4.8); LYMPH % 12 % (24-48); MEAN CORPUSCULAR HEMOGLOBIN 30 pg (25-35); MEAN CORPUSCULAR HGB CONC 34 g/dL (31-37); MEAN CORPUSCULAR VOLUME 90 fL (79-100); MONO # 0.3 x10^3/uL (0.0-1.1); MONO % 6 % (0-9); NEUT # 3.8 x10^3/uL (1.8-7.7); NEUT % 77 % (31-73); PLATELET COUNT 193 x10^3/uL (140-400); RED BLOOD COUNT 3.51 x10^6/uL (3.50-5.40); RED CELL DISTRIBUTION WIDTH 15.5 % (11.5-14.5); WHITE BLOOD COUNT 4.9 x10^3/uL (4.0-11.0)
[2019-11-21 14:49] LABS: BILIRUBIN,URINE NEGATIVE (NEG); CLARITY,URINE CLEAR; COLOR,URINE YELLOW; NITRITE,URINE NEGATIVE (NEG); PROTEIN,URINE NEGATIVE (NEG-TRACE); UROBILINOGEN,URINE 0.2 mg/dL (0.2 mg/dL)
[2019-11-21 14:54] LABS: CALCIUM 9.3 mg/dL (8.5-10.1); CREATININE 1.5 mg/dL (0.6-1.0); GFR 35.2; POTASSIUM 3.7 mmol/L (3.5-5.1)
[2019-11-21 14:56] LABS: HYALINE CASTS, URINE FEW /HPF; SQUAMOUS EPITHELIAL CELL,UR FEW /LPF
[2019-11-21 14:57] LABS: BACTERIA,URINE FEW /HPF (0-FEW); RBC,URINE 0 /HPF (0-2)
[2019-11-21 14:59] LABS: ALBUMIN 3.7 g/dL (3.4-5.0); ALBUMIN/GLOBULIN RATIO 1.1 (1.0-1.7); MAGNESIUM 2.1 mg/dL (1.8-2.4); TOTAL BILIRUBIN 0.2 mg/dL (0.2-1.0); TOTAL PROTEIN 7.2 g/dL (6.4-8.2)
[2019-11-21] MEDS ORDERED: IV NORMAL SALINE 500ML BAG 500 ML IV ONE (15:15)
[2019-11-21 16:00] VITALS: BP 112/55
--- NOTE | 2019-11-21 16:11 | PHYS DOC ---
Past Medical History Past Medical History: Anemia, Arthritis, Asthma, Cancer, Diabetes-Type II, GERD, High Cholesterol, Hypertension, Renal Disease, Other Additional Past Medical Histor: sleep apnea;peripheral neuropathy,UTERINE CA/CHEMO/RADIATION @ [facility] Past Surgical History: Lumbar Laminectomy, Tonsillectomy Additional Past Surgical Histo: bunionectomy,R carpal tunnel/trigger thumb,pac left chest Smoking Status: Never Smoker Alcohol Use: None Drug Use: None General Adult EDM: Chief Complaint: OTHER COMPLAINTS HPI: HPI: Patient is a 64 year old female who was sent here from urgent care due to low blood pressure. Patient says she has been feeling weak off and on for a month. Patient has history of hypertension, she is on 3 different blood pressure medication. Patient went to the urgent care today, her blood pressure was not measured at 90/50, they sent her here for evaluation. Patient had not taken any of her blood pressure medication today. Patient denies any cough or fever, no chest pain, no nausea vomiting, no abdominal pain. Review of Systems: Review of Systems: Constitutional: Denies fever or chills. [] Eyes: Denies change in visual acuity. [] HENT: Denies nasal congestion or sore throat. [] Respiratory: Denies cough or shortness of breath. [] Cardiovascular: Denies chest pain or edema. [] GI: Denies abdominal pain, nausea, vomiting, bloody stools or diarrhea. [] : Denies dysuria. [] Musculoskeletal: Denies back pain or joint pain. [] Integument: Denies rash. [] Neurologic: Denies headache, focal weakness or sensory changes. [] Endocrine: Denies polyuria or polydipsia. [] Lymphatic: Denies swollen glands. [] Psychiatric: Denies depression or anxiety. [] Heart Score: Risk Factors: Risk Factors: DM, Current or recent (<one month) smoker, HTN, HLP, family history of CAD, obesity. Risk Scores: Score 0 - 3: 2.5% MACE over next 6 weeks - Discharge Home Score 4 - 6: 20.3% MACE over next 6 weeks - Admit for Clinical Observation Score 7 - 10: 72.7% MACE over next 6 weeks - Early Invasive Strategies Current Medications: Current Medications Medications (Trade) Dose Ordered Sig/Dung Start Time Stop Time Status Last Admin Dose Admin Sodium Chloride 500 ml @ 500 mls/hr 1X ONCE 11/21/19 15:15 11/21/19 16:14 11/21/19 15:41 500 MLS/HR Allergies: Allergies: Allergies Coded Allergies Type Severity Reaction Last Updated Verified kiwi Allergy Severe SWELLING THROAT 12/27/18 Yes pineapple Allergy Severe swelling throat 12/27/18 Yes niacin Allergy Intermediate hives 12/27/18 Yes ezetimibe Allergy Mild HEADACHES 12/27/18 Yes simvastatin Allergy Mild HEADACHES 12/27/18 Yes Physical Exam: PE: Constitutional: Well developed, well nourished, no acute distress, non-toxic appearance. [] HENT: Normocephalic, atraumatic, bilateral external ears normal, oropharynx moist, no oral exudates, nose normal. [] Eyes: PERRLA, EOMI, conjunctiva normal, no discharge. [] Neck: Normal range of motion, no tenderness, supple, no stridor. [] Cardiovascular:Heart rate regular rhythm, no murmur [] Lungs & Thorax: Bilateral breath sounds clear to auscultation [] Abdomen: Bowel sounds normal, soft, no tenderness, no masses, no pulsatile masses. [] Skin: Warm, dry, no erythema, no rash. [] Back: No tenderness, no CVA tenderness. [] Extremities: No tenderness, no cyanosis, no clubbing, ROM intact, no edema. [] Neurologic: Alert and oriented X 3, normal motor function, normal sensory function, no focal deficits noted. [] Psychologic: Affect normal, judgement normal, mood normal. [] Current Patient Data: Labs: Laboratory Tests Test 11/21/19 13:48 11/21/19 14:40 Urine Collection Type Void Urine Color Yellow Urine Clarity Clear Urine pH 5.0 (<5.0-8.0) Urine Specific [place] 1.020 (1.000-1.030) Urine Protein Negative mg/dL (NEG-TRACE) Urine Glucose (UA) Negative mg/dL (NEG) Urine Ketones (Stick) Negative mg/dL (NEG) Urine Blood Negative (NEG) Urine Nitrite Negative (NEG) Urine Bilirubin Negative (NEG) Urine Urobilinogen Dipstick 0.2 mg/dL (0.2 mg/dL) Urine Leukocyte Esterase Small (NEG) Urine RBC 0 /HPF (0-2) Urine WBC 1-4 /HPF (0-4) Urine Squamous Epithelial Cells Few /LPF Urine Bacteria Few /HPF (0-FEW) Urine Hyaline Casts Few /HPF Urine Mucus Marked /LPF White Blood Count 4.9 x10^3/uL (4.0-11.0) Red Blood Count 3.51 x10^6/uL (3.50-5.40) Hemoglobin 10.7 g/dL (12.0-15.5) L Hematocrit 31.4 % (36.0-47.0) L Mean Corpuscular Volume 90 fL (79-100) Mean Corpuscular Hemoglobin 30 pg (25-35) Mean Corpuscular Hemoglobin Concent 34 g/dL (31-37) Red Cell Distribution Width 15.5 % (11.5-14.5) H Platelet Count 193 x10^3/uL (140-400) Neutrophils (%) (Auto) 77 % (31-73) H Lymphocytes (%) (Auto) 12 % (24-48) L Monocytes (%) (Auto) 6 % (0-9) Eosinophils (%) (Auto) 4 % (0-3) H Basophils (%) (Auto) 1 % (0-3) Neutrophils # (Auto) 3.8 x10^3/uL (1.8-7.7) Lymphocytes # (Auto) 0.6 x10^3/uL (1.0-4.8) L Monocytes # (Auto) 0.3 x10^3/uL (0.0-1.1) Eosinophils # (Auto) 0.2 x10^3/uL (0.0-0.7) Basophils # (Auto) 0.0 x10^3/uL (0.0-0.2) Sodium Level 141 mmol/L (136-145) Potassium Level 3.7 mmol/L (3.5-5.1) Chloride Level 103 mmol/L (98-107) Carbon Dioxide Level 27 mmol/L (21-32) Anion Gap 11 (6-14) Blood Urea Nitrogen 29 mg/dL (7-20) H Creatinine 1.5 mg/dL (0.6-1.0) H Estimated GFR (Cockcroft-Gault) 35.2 BUN/Creatinine Ratio 19 (6-20) Glucose Level 225 mg/dL (70-99) H Calcium Level 9.3 mg/dL (8.5-10.1) Magnesium Level 2.1 mg/dL (1.8-2.4) Total Bilirubin 0.2 mg/dL (0.2-1.0) Aspartate Amino Transferase (AST) 19 U/L (15-37) Alanine Aminotransferase (ALT) 33 U/L (14-59) Alkaline Phosphatase 74 U/L (46-116) Total Protein 7.2 g/dL (6.4-8.2) Albumin 3.7 g/dL (3.4-5.0) Albumin/Globulin Ratio 1.1 (1.0-1.7) Laboratory Tests 11/21/19 14:40 Laboratory Tests 11/21/19 14:40 Vital Signs: Vital Signs Date Time Temp Pulse Resp B/P (MAP) Pulse Ox O2 Delivery O2 Flow Rate FiO2 11/21/19 15:30 72 110/53 (72) 93 Room Air 11/21/19 13:43 98.1 20 98.1 EKG: EKG: [] Radiology/Procedures: Radiology/Procedures: [] Course & Med Decision Making: Course & Med Decision Making Pertinent Labs and Imaging studies reviewed. (See chart for details) Patient is a 64-year-old female who was evaluated in the ER due to low blood pressure. Patient checked her blood pressure this morning and it was low, she went to the urgent care they checked her blood pressure was in the 90/50, she is found to be on 3 different blood pressure medication taken in the morning and at night. Patient did not take any of her blood pressure medication today and her blood pressure in the ER here run around 110/60. Her lab work show elevated creatinine and BUN consistent with dehydration. Patient is on diuretics. Patient will need to be evaluated by her family physician about her blood pressure issue again before she resumes taking her blood pressure medication. Dragon Disclaimer: Dragon Disclaimer: This electronic medical record was generated, in whole or in part, using a voice recognition dictation system. Departure Departure Impression: Primary Impression: Dehydration Additional Impressions: Hypotension UTI (urinary tract infection) Disposition: 01 HOME, SELF-CARE Condition: IMPROVED Referrals: JEMMA LICEA MD (PCP) please follow up with your family doctor this week. Do not take your blood pressure medication without measuring your blood pressure first. Patient Instructions: Dehydration, Adult, Hypotension, Urinary Tract Infection Additional Instructions: Thank you for visiting our Emergency Department. We appreciate you trusting us with your care. If any additional problems come up don't hesitate to return to visit us. Please follow up with your primary care provider so they can plan additional care if needed and know about the problem that you had. If symptoms worsen come back to the Emergency Department. Any concerning symptoms that start such as chest pain, shortness of air, weakness or numbness on one side of the body, running high fevers or any other concerning symptoms return to the ER. Scripts Sulfamethoxazole/Trimethoprim (BACTRIM DS TABLET) 1 Each Tablet 1 TAB PO BID for 7 Days, #14 TAB 0 Refills Prov: KYM HICKMAN DO 11/21/19 Justicifation of Admission Dx: Justifications for Admission: Justification of Admission Dx: N/A KYM HICKMAN DO Nov 21, 2019 16:11
[2019-11-21] MEDS ORDERED: SULF1TAB24 PO (16:34)
== END 2019-11-21 16:40 | disposition home or self-care (01) ==
LOC: ER 13:22
DX: E86.0 Dehydration (principal); I95.9 Hypotension, unspecified; N39.0 Urinary tract infection, site not specified; E11.22 Type 2 diabetes mellitus with diabetic chronic kidney disease; I12.9 Hypertensive chronic kidney disease with stage 1 through stage 4 chronic kidney disease, or unspecified chronic kidney disease; N18.9 Chronic kidney disease, unspecified; J45.909 Unspecified asthma, uncomplicated; K21.9 Gastro-esophageal reflux disease without esophagitis; E78.00 Pure hypercholesterolemia, unspecified; E11.40 Type 2 diabetes mellitus with diabetic neuropathy, unspecified; Z88.8 Allergy status to other drugs, medicaments and biological substances; Z91.018 Allergy to other foods
CPT/HCPCS: 36415; 80053; 81001; 83735; 85025; 87086; 96360; 99285; J7040

== ENCOUNTER → 2019-12-20 | Outpatient (CLI) | payer MEDICAID ==
[2019-11-21 16:00] VITALS: BP 112/55
[~2019-12-20] MED LIST changes: +METH4TAB2 PO; +SULF1TAB24 PO
--- NOTE | 2019-12-20 10:36 | KCIC ---
LUMBAR SPINE WO CONTRAST History: Reason: ACUTE LOW BACK PAIN / Spl. Instructions: Prior surgery 2011. / History: New onset of LBP with shooting pain down LLE. Technique: Multiplanar, multi sequential MR imaging was performed of the lumbar spine. Comparison: None Findings: Grade 1 anterolisthesis L4 on L5. Normal vertebral height. No fracture. Posterior decompression L4-5 and L5-S1. Conus terminates at the normal location. No evidence of nerve root clumping. Right renal cyst. L1-L2: No canal or neuroforaminal narrowing. L2-L3: Small disc bulge. Mild facet arthropathy. No canal or neuroforaminal narrowing. L3-L4: Broad-based disc bulge. Moderate facet arthropathy. Ligament of flavum thickening. Mild subarticular recess narrowing. Minimal canal narrowing. Mild bilateral neuroforaminal narrowing. L4-L5: Anterolisthesis. Disc bulge. Posterior decompression. No canal narrowing. Left foraminal disc annular fissure. Mild to moderate left and mild right neuroforaminal narrowing. There is abutment of the exiting left L4 nerve root. Advanced facet arthropathy. L5-S1: Prominent ventral epidural fat. Posterior decompression. No canal narrowing. Advanced facet arthropathy. No neuroforaminal narrowing. Impression: 1. Multilevel lumbar spondylosis with postoperative changes lower lumbar spine. 2. Grade 1 anterolisthesis L4 on L5. 3. Neuroforaminal narrowing most prominent left L4-5 with abutment of the exiting left L4 nerve root. Correlate for radiculopathy. Electronically signed by: Maninder Anderson DO (12/20/2019 10:33 AM) [id number]
== END ==
LOC: KCIC MRI 09:15
PROVIDERS: ATTEND Family Medicine
DX: M47.817 Spondylosis without myelopathy or radiculopathy, lumbosacral region (principal); N28.1 Cyst of kidney, acquired; M48.061 Spinal stenosis, lumbar region without neurogenic claudication
CPT/HCPCS: 72148

== ENCOUNTER 2019-12-24 10:02 | Emergency (ER) | payer MEDICAID ==
[~2019-12-24] VITALS: Ht 167.6 cm; Wt 99.0 kg
[~2019-12-24 10:02] MED LIST changes: -METH4TAB2 PO
--- NOTE | 2019-12-24 10:48 | PHYS DOC ---
Past Medical History Past Medical History: Anemia, Arthritis, Asthma, Cancer, Diabetes-Type II, GERD, High Cholesterol, Hypertension, Renal Disease, Other Additional Past Medical Histor: sleep apnea;peripheral neuropathy,UTERINE CA/CHEMO/RADIATION @ [facility] Past Surgical History: Hysterectomy, Lumbar Laminectomy, Tonsillectomy Additional Past Surgical Histo: bunionectomy,R carpal tunnel/trigger thumb,pac left chest Smoking Status: Never Smoker Alcohol Use: None Drug Use: None General Adult EDM: Chief Complaint: LOWER BACK PAIN OR INJURY HPI: HPI: History obtained from the patient. Patient is a 62-year-old female with past medical history notable for endometrial cancer with hysterectomy and chemotherapy treatment who presents with chief complaint of left lower back pain. She states his back pain is been present over the past couple of months. States it is gradually worsened. She has tried [place] at home, Tylenol, ibuprofen with minimal relief. States pain is a constant aching pain made worse with movement or laying still for prolonged periods of time. Did see her family physician last week who gave her a Toradol injection with relief. She did have an outpatient MRI performed on December 19. She does not know the results of this. Denies dysuria or hematuria. Denies history of kidney stone. Denies fever or vomiting. Denies chest pain or shortness breath. Denies syncope. Denies urinary retention, stool incontinence, IV drug use, perennial numbness. Denies recent falls or trauma. Able to ambulate. No other complaints. Review of Systems: Review of Systems: Constitutional: Denies fever or chills. [] Eyes: Denies change in visual acuity. [] HENT: Denies nasal congestion or sore throat. [] Respiratory: Denies cough or shortness of breath. [] Cardiovascular: Denies chest pain or edema. [] GI: Denies abdominal pain, nausea, vomiting, bloody stools or diarrhea. [] : Denies dysuria. [] Musculoskeletal: Positive for back pain Integument: Denies rash. [] Neurologic: Denies headache, focal weakness or sensory changes. [] Endocrine: Denies polyuria or polydipsia. [] Lymphatic: Denies swollen glands. [] Psychiatric: Denies depression or anxiety. [] Heart Score: Risk Factors: Risk Factors: DM, Current or recent (<one month) smoker, HTN, HLP, family history of CAD, obesity. Risk Scores: Score 0 - 3: 2.5% MACE over next 6 weeks - Discharge Home Score 4 - 6: 20.3% MACE over next 6 weeks - Admit for Clinical Observation Score 7 - 10: 72.7% MACE over next 6 weeks - Early Invasive Strategies Current Medications: Current Medications Medications (Trade) Dose Ordered Sig/Dung Start Time Stop Time Status Last Admin Dose Admin Ketorolac Tromethamine (Toradol 15mg Vial) 15 mg 1X ONCE 12/24/19 10:45 12/24/19 10:46 UNV Lidocaine (Lidoderm) 1 patch DAILY 12/25/19 09:00 UNV Allergies: Allergies: Allergies Coded Allergies Type Severity Reaction Last Updated Verified kiwi Allergy Severe SWELLING THROAT 12/27/18 Yes pineapple Allergy Severe swelling throat 12/27/18 Yes niacin Allergy Intermediate hives 12/27/18 Yes ezetimibe Allergy Mild HEADACHES 12/27/18 Yes simvastatin Allergy Mild HEADACHES 12/27/18 Yes Physical Exam: PE: Constitutional: Well developed, well nourished, no acute distress, non-toxic appearance. [] HENT: Normocephalic, atraumatic, bilateral external ears normal, oropharynx moist, no oral exudates, nose normal. [] Eyes: PERRLA, EOMI, conjunctiva normal, no discharge. [] Neck: Normal range of motion, no tenderness, supple, no stridor. [] Cardiovascular:Heart rate regular rhythm, no murmur [] Lungs & Thorax: Bilateral breath sounds clear to auscultation [] Abdomen: soft, no tenderness, no masses, no pulsatile masses. [] Skin: Warm, dry, no erythema, no rash. [] Back: No tende + 5/5 motor strength in dorsiflexion and plantarflexion of the great toes bilaterally. Sensation intact between the webbing of the first and second toes bilaterally. Extremities: No tenderness, no cyanosis, no clubbing, ROM intact, no edema. [] Neurologic: Alert and oriented X 3, normal motor function, normal sensory function, no focal deficits noted. [] Psychologic: Affect normal, judgement normal, mood normal. [] Current Patient Data: Labs: Vital Signs Date Time Temp Pulse Resp B/P (MAP) Pulse Ox O2 Delivery O2 Flow Rate FiO2 12/24/19 10:17 98.0 72 16 127/77 (94) 97 98.0 Vital Signs: Vital Signs Date Time Temp Pulse Resp B/P (MAP) Pulse Ox O2 Delivery O2 Flow Rate FiO2 12/24/19 10:17 98.0 72 16 127/77 (94) 97 98.0 EKG: EKG: [] Radiology/Procedures: Radiology/Procedures: [facility] [address] [place] [address] IMAGING REPORT Signed PATIENT: EMILY CROWELL ACCOUNT: [id number] : 1955 LOCATION: ER AGE: 64 SEX: F EXAM STATUS: REG ER ORD. PHYSICIAN: NATHAN VELEZ DO REASON: left low bakc pain. hx endometrial CA PROCEDURE: CT ABDOMEN PELVIS WO CONTRAST PQRS Compliance Statement: One or more of the following individualized dose reduction techniques were utilized for this examination: 1. Automated exposure control 2. Adjustment of the mA and/or kV according to patient size 3. Use of iterative reconstruction technique CT ABDOMEN PELVIS WO CONTRAST Clinical Indication: Reason: left low back pain. hx endometrial CA / Spl. Instructions: / History: Comparison: CT abdomen and pelvis with contrast October 12, 2018. Technique: Helical CT imaging of the abdomen and pelvis is performed without IV or oral contrast. Findings: Evaluation of solid organs and bowel is limited without oral and IV contrast, decreasing sensitivity for detection of pathology. Minimal atelectasis in the posterior lower lobes bilaterally. Coronary artery disease. Cardiac size normal. Calcified granulomas in the liver and the spleen. The gallbladder, pancreas, adrenal glands, and abdominal aorta are normal. Cyst at the upper pole the right kidney does not require follow-up. There is no hydronephrosis. Bifid left collecting system. Stomach unremarkable. Small duodenal diverticulum. The appendix is thin-walled and normal caliber and there is air in portion of the lumen. There is no dilated small bowel. There is moderate distal colon diverticulosis. No colon wall thickening is identified. No abdominal adenopathy or free fluid. Urinary bladder is not well distended accentuating wall thickness. Hysterectomy. No pelvic free fluid. There are tiny bilateral fat-containing inguinal hernias. Grade 1 anterolisthesis of L4 on L5. IMPRESSION: 1. No acute abdominal or pelvic abnormality. 2. Distal colon diverticulosis. Electronically signed by: Josef Joiner MD (12/24/2019 12:45 PM) [id number] DICTATED and SIGNED BY: JOSEF JOINER MD DATE: 12/24/19 1245 [] Course & Med Decision Making: Course & Med Decision Making Pertinent Labs and Imaging studies reviewed. (See chart for details) [] Patient is a 64-year-old female who presents with chief complaint of left lower back pain that is been present for 2 months. She did have an MRI performed approximately 5 days ago. I was able to review those results and she does have a bulging disc at the L4 L3 space. Anteriolisthesis also noted. Given her history of endometrial cancer CT abdomen pelvis was obtained to evaluate for metastatic process. No signs of acute cancerous lesions currently. Urinalysis without infection. Remainder of labs unremarkable. Patient did receive Toradol and did get relief with this. She has been on multiple medications at home including the current prescription of hydrocodone. She states Flexeril tends to make her loopy. Patient will be discharged home with a short course of Medrol Dosepak. She was instructed to watch her blood sugars c losely this may elevate them. She will be given referral to a neurosurgeon for potential intervention in the future. Instructed follow-up with her primary care physician. Return precautions discussed and understood. Stable for discharge home. Harris Disclaimer: Harris Disclaimer: This electronic medical record was generated, in whole or in part, using a voice recognition dictation system. Departure Departure Impression: Primary Impression: Low back pain Qualified Codes: M54.5 - Low back pain Disposition: DC HOME SELF CARE/HOMELESS Condition: STABLE Referrals: JEMMA LICEA MD (PCP) JACINDA HERR MD Patient Instructions: Back Exercises, Back Pain, Adult Additional Instructions: Please follow-up with your primary care physician next week. Scripts Methylprednisolone (MEDROL) 4 Mg Tab.ds.pk 1 PKG PO UD, #1 PKG Prov: NATHAN VELEZ DO 12/24/19 NATHAN VELEZ DO Dec 24, 2019 10:48
[2019-12-24] MEDS ORDERED: KETOROLAC 15 MG/ML VIAL. IVP ONE (11:00)
[2019-12-24] MEDS ORDERED: LIDOCAINE (700MG/PATCH) PATCH. TD SCH (11:00)
[2019-12-24 11:17] LABS: BILIRUBIN,URINE SMALL (NEG); CLARITY,URINE CLEAR; COLOR,URINE YELLOW; NITRITE,URINE NEGATIVE (NEG); PH,URINE 5.5 (<5.0-8.0); PROTEIN,URINE 100 mg/dL (NEG-TRACE); UROBILINOGEN,URINE 0.2 mg/dL (0.2 mg/dL)
[2019-12-24 11:30] LABS: BASO # 0.1 x10^3/uL (0.0-0.2); BASO % 1 % (0-3); EOS # 0.2 x10^3/uL (0.0-0.7); EOS % 3 % (0-3); HEMATOCRIT 36.6 % (36.0-47.0); HEMOGLOBIN 12.3 g/dL (12.0-15.5); LYMPH # 1.1 x10^3/uL (1.0-4.8); LYMPH % 18 % (24-48); MEAN CORPUSCULAR HEMOGLOBIN 29 pg (25-35); MEAN CORPUSCULAR HGB CONC 34 g/dL (31-37); MEAN CORPUSCULAR VOLUME 87 fL (79-100); MONO # 0.4 x10^3/uL (0.0-1.1); MONO % 7 % (0-9); NEUT # 4.4 x10^3/uL (1.8-7.7); NEUT % 71 % (31-73); PLATELET COUNT 261 x10^3/uL (140-400); RED BLOOD COUNT 4.22 x10^6/uL (3.50-5.40); RED CELL DISTRIBUTION WIDTH 14.9 % (11.5-14.5); WHITE BLOOD COUNT 6.2 x10^3/uL (4.0-11.0)
[2019-12-24 11:40] LABS: CALCIUM 9.4 mg/dL (8.5-10.1); CREATININE 1.3 mg/dL (0.6-1.0); GFR 41.5; POTASSIUM 4.2 mmol/L (3.5-5.1)
[2019-12-24 11:42] LABS: BACTERIA,URINE 0 /HPF (0-FEW); RBC,URINE 0 /HPF (0-2); WBC,URINE 0 /HPF (0-4)
[2019-12-24] MEDS ORDERED: CONTRAST GIVEN. MC PRN (12:00)
[2019-12-24] MEDS ORDERED: IOHEXOL 300 MG/ML 100ML VIAL. IV ONE (12:30)
--- NOTE | 2019-12-24 12:47 | RAD ---
PQRS Compliance Statement: One or more of the following individualized dose reduction techniques were utilized for this examination: 1. Automated exposure control 2. Adjustment of the mA and/or kV according to patient size 3. Use of iterative reconstruction technique CT ABDOMEN PELVIS WO CONTRAST Clinical Indication: Reason: left low back pain. hx endometrial CA / Spl. Instructions: / History: Comparison: CT abdomen and pelvis with contrast October 12, 2018. Technique: Helical CT imaging of the abdomen and pelvis is performed without IV or oral contrast. Findings: Evaluation of solid organs and bowel is limited without oral and IV contrast, decreasing sensitivity for detection of pathology. Minimal atelectasis in the posterior lower lobes bilaterally. Coronary artery disease. Cardiac size normal. Calcified granulomas in the liver and the spleen. The gallbladder, pancreas, adrenal glands, and abdominal aorta are normal. Cyst at the upper pole the right kidney does not require follow-up. There is no hydronephrosis. Bifid left collecting system. Stomach unremarkable. Small duodenal diverticulum. The appendix is thin-walled and normal caliber and there is air in portion of the lumen. There is no dilated small bowel. There is moderate distal colon diverticulosis. No colon wall thickening is identified. No abdominal adenopathy or free fluid. Urinary bladder is not well distended accentuating wall thickness. Hysterectomy. No pelvic free fluid. There are tiny bilateral fat-containing inguinal hernias. Grade 1 anterolisthesis of L4 on L5. IMPRESSION: 1. No acute abdominal or pelvic abnormality. 2. Distal colon diverticulosis. Electronically signed by: Josef Joiner MD (12/24/2019 12:45 PM) [id number]
[2019-12-24 13:00] VITALS: BP 126/60
[2019-12-24] MEDS ORDERED: METH4TAB2 PO (13:00)
[2019-12-24] MEDS ORDERED: PATCH REMOVAL. MC SCH (21:00)
== END 2019-12-24 13:10 | disposition home or self-care (01) ==
LOC: ER 10:02
DX: M54.5 Low back pain (principal); R20.2 Paresthesia of skin; M19.90 Unspecified osteoarthritis, unspecified site; J45.909 Unspecified asthma, uncomplicated; K21.9 Gastro-esophageal reflux disease without esophagitis; E78.00 Pure hypercholesterolemia, unspecified; E11.40 Type 2 diabetes mellitus with diabetic neuropathy, unspecified; I10 Essential (primary) hypertension; Z90.710 Acquired absence of both cervix and uterus; Z90.89 Acquired absence of other organs; Z98.890 Other specified postprocedural states; Z88.1 Allergy status to other antibiotic agents; Z91.018 Allergy to other foods; Z88.8 Allergy status to other drugs, medicaments and biological substances
CPT/HCPCS: 36415; 74176; 80048; 81001; 85025; 96374; 99284; J1885

== ENCOUNTER → 2020-05-30 | Outpatient (CLI) | payer MEDICAID ==
[~2020-05-30] MED LIST changes: -CIPR500T PO; +CIPR500T2 PO; +METH4TAB2 PO
--- NOTE | 2020-05-30 14:21 | KCIC ---
Targeted soft tissue ultrasound of the neck without comparison for increased fullness of the right ne ck, mass effect sensation for 3 months. Technique an findings: Real-time grayscale and color Doppler evaluation of the area of interest in th e right neck is performed. There are at least 2 lymph nodes in the area of interest, the largest of w hich is 1 cm in greatest diameter. Benignity is suspected, however this does not definitely exhibit n ormal morphology however, and follow-up ultrasound study in 6-12 weeks for reassessment is encouraged . IMPRESSION: 1. Small lymph nodes in the area of interest, likely benign. The largest lymph node of 1 cm is not de picted well enough to definitively assess as being normal in morphology, hence follow-up ultrasound i n 6-12 weeks is recommended. Electronically signed by: Salvador Billingsley MD (05/30/2020 2:19 PM) [id number]
== END ==
LOC: KCIC US 10:10
PROVIDERS: ATTEND Family Medicine
DX: R22.1 Localized swelling, mass and lump, neck (principal); R13.10 Dysphagia, unspecified
CPT/HCPCS: 76536

== ENCOUNTER → 2020-06-12 | Outpatient (CLI) | payer MEDICAID ==
[~2020-06-12] MED LIST changes: +IOHEXOL 300 MG/ML 100ML VIAL. IV ONE
--- NOTE | 2020-06-13 09:56 | KCIC ---
EXAM: CT Neck with IV contrast INDICATION: Reason: Mass Rt side of neck 3 months, soreness. Area marked w/BB / Spl. Instructions: 95 mL Omni 300 / History: Hx, uterine CA 2019 TECHNIQUE: Multiple contiguous axial images were obtained of the neck with the use of IV contrast. Po st-processing reconstructed images were obtained for interpretation. All CT scans performed at this [facility] utilize dose optimization techniques as appropriate to the exam, including the following: Aut omated exposure control and adjustment of the mA and/or KV according to patient size (this includes t echniques or standardized protocols for targeted exams where dose is indication/reason for exam). IV CONTRAST: Administered COMPARISON: None FINDINGS: INTRACRANIAL STRUCTURES & ORBITS: Unremarkable. AERODIGESTIVE: The nasal cavity, nasopharynx, oral cavity, oropharynx, hypopharynx, larynx, and visu alized trachea and esophagus demonstrate no masses or abnormal enhancement. CERVICAL LYMPH NODES & SOFT TISSUES: No adenopathy, soft tissue mass, or fluid collection. THYROID & SALIVARY GLANDS: Unremarkable. LUNG APICES: Clear. OSSEOUS: C6-C7 disc degenerative change is present. It is associated with minimal focal kyphosis. No fracture or aggressive appearing bony lesions identified. The 6 mm sclerotic focus in the right C7 t ransverse process compatible with a bone island is also noted.. A BB marker overlies the right submental subcutaneous soft tissues and there is no mass distinguishab le from the patient's normal subcutaneous fat present at this location. There is asymmetry in bulk of the subcutaneous fat, right greater than left. A lipoma could be present. A left tunneled chest port from a subclavian approach is present, partially imaged. IMPRESSION: No solid soft tissue neck mass distinguishable from subcutaneous fat in the lower right neck. Recommend clinical management and follow-up. Electronically signed by: Ej Guerrero MD (06/13/2020 9:54 AM) [id number]
== END ==
LOC: KCIC CT 09:56
PROVIDERS: ATTEND Family Medicine
DX: M47.812 Spondylosis without myelopathy or radiculopathy, cervical region (principal); M40.292 Other kyphosis, cervical region
CPT/HCPCS: 70491; 82565; Q9967